=== PATIENT | male | born 1990 | race Asian ===

== ENCOUNTER 2020-10-17 13:23 | Emergency (ER) | payer OTHER, SELFPAY ==
[~2020-10-17] VITALS: Ht 185.4 cm; Wt 65.8 kg
[2020-10-17 13:26] VITALS: Ht 185.4 cm; Wt 65.8 kg
[2020-10-17 14:13] VITALS: BP 120/76
== END 2020-10-17 14:13 | disposition home or self-care (01) ==
LOC: ED 13:23
DX: R50.9 Fever, unspecified (principal); R05 Cough; M79.10 Myalgia, unspecified site; Z20.828 Contact with and (suspected) exposure to other viral communicable diseases
CPT/HCPCS: U0003